=== PATIENT | female | born 1960 | race American Indian/Alaskan Native ===

== ENCOUNTER 2020-09-10 09:27 | Emergency (ER) | payer BC ==
[2020-09-10 09:56] VITALS: BP 170/88
[2020-09-10 10:21] LABS: Hematocrit 40.7 % (30.3-42.9); Hemoglobin 14.5 gm/dl (10.1-14.3); Mean Corpuscular HGB Conc 36 % (30-34); Mean Corpuscular Volume 93 fl (79-97); Platelet Count 349 K/mm3 (140-440); Red Blood Count 4.36 M/mm3 (3.65-5.03); Red Cell Distribution Width 13.1 % (13.2-15.2)
[2020-09-10 10:39] LABS: Alanine Aminotransferase 28 units/L (7-56); Albumin 4.5 g/dL (3.9-5); BUN/Creatinine Ratio 20; Blood Urea Nitrogen 18 mg/dL (7-17); Calcium 9.9 mg/dL (8.4-10.2); Hemolysis Index 3
[2020-09-10 10:43] LABS: Bilirubin,Urine NEG (Negative); Blood,Urine NEG (Negative); Color,Urine Yellow (Yellow); Mucus,Urine FEW /HPF; Protein,Urine <15 mg/dL mg/dL (Negative); Urobilinogen,Urine < 2.0 mg/dL (<2.0)
--- NOTE | 2020-09-10 11:04 | Event Note ---
ED Screening Note Date of service: 09/10/20 Time: 11:02 ED Screening Note: 59-year-old female patient with history of diabetes, alcohol use, and BMI >30 kg presents to the emergency department with complaints of postprandial right upper quadrant pain for 3 months, progressively worsening over the course of the last week. Patient was evaluated by her primary care provider, who recommended an ultrasound. However, she has not scheduled to undergo the ultrasound until next month. Patient states she used to consume an excessive amount of alcohol but has significantly cut back on her drinking. General: Awake, appropriately interactive, no acute distress. Neck: Supple. Full range of motion intact. Cardiovascular: Normal peripheral perfusion. Pulmonary: No respiratory distress. Patient is speaking normally without use of accessory muscles. Abdomen: Soft, nondistended. Right upper quadrant tenderness without guarding, rebound, or rigidity. Positive Hernandez sign. Skin: No apparent rashes or lesions. Neurological: No facial asymmetry. Speech is clear. Follows commands. Patient is alert and oriented. Musculoskeletal: Moves all four extremities spontaneously with normal range of motion. Psych: Cooperative. Appropriate mood and affect. I have greeted and performed a focused rapid initial assessment of this patient. A comprehensive ED assessment and evaluation of the patient, analysis of all test results, and completion of the medical decision-making process will be conducted by additional ED providers. This initial assessment/diagnostic orders/clinical plan/treatment(s) is/are subject to change based on patients health status, clinical progression and re-assessment. Further treatment and workup at subsequent clinical provider's discretion. Patient/guardian urged not to elope from the ED as their condition may be serious if not clinically assessed and managed.
--- NOTE | 2020-09-10 12:14 | Ultrasound Report ---
ULTRASOUND ABDOMEN, LIMITED (RIGHT UPPER QUADRANT) INDICATION: postprandial RUQ pain. COMPARISON: None available. FINDINGS: Pancreas: Visualized portion shows no significant abnormality. Liver: There is diffuse hepatic steatosis. No focal lesions are identified. Gallbladder: Minimal sludge. No stones. Bile ducts: Normal. Common Bile Duct measures 3-4 mm. Free fluid: None. Additional Findings: None. IMPRESSION: 1. Minimal gallbladder sludge, no sonographic evidence of cholecystitis. 2. Hepatic steatosis. Signer Name: Kris Almaraz MD Signed: 09/10/2020 12:09 PM Workstation Name: [id number]
--- NOTE | 2020-09-10 12:18 | Emergency Department Report ---
ED Abdominal Pain HPI - General Chief Complaint: Abdominal Pain Stated Complaint: ABDOMINAL PAIN PUI?: No Time Seen by Provider: 09/10/20 12:17 Source: patient Mode of arrival: Ambulatory Limitations: No Limitations - History of Present Illness Initial Comments: Patient is a 59-year-old -[place] female that comes to the emergency room today complaining of abdominal pain. She is currently under the care of her primary care and GI physician for right upper quadrant pain. She is to go for an ultrasound but the pain was so bad she came to the ER today. Patient denies nausea vomiting. She denies fever or chills. She denies any diarrhea or constipation. She denies being awakened at night from sleep with the pain. She denies any constipation or bloody stools. Patient cannot relate her pain to any activity or lack of activity or dietARY factor. The only thing that she can say is that she notices the pain more after eating not before during. Patient does have a significant history for alcohol use but she has decreased her drinking quite a bit per reports. MD Complaint: abdominal pain -: Gradual, week(s) Radiation: none Migration to: no migration Severity: moderate Quality: aching Improves With: nothing Worsens With: nothing Associated Symptoms: denies other symptoms - Related Data Allergies Allergy/AdvReac Type Severity Reaction Status Date / Time No Known Allergies Allergy Unverified 09/10/20 09:52 ED Review of Systems ROS: Stated complaint: ABDOMINAL PAIN Other details as noted in HPI Comment: All other systems reviewed and negative ED Past Medical Hx - Past Medical History Previous Medical History?: Yes Hx Hypertension: Yes Hx Diabetes: Yes - Surgical History Past Surgical History?: Yes Additional Surgical History: hysterectomy, c-sectionx3 - Family History Family history: no significant - Social History Smoking Status: Never Smoker Substance Use Type: Alcohol ED Physical Exam - General Limitations: No Limitations General appearance: alert, in no apparent distress - Head Head exam: Present: atraumatic, normocephalic - Eye Eye exam: Present: normal appearance - ENT ENT exam: Present: mucous membranes moist - Neck Neck exam: Present: normal inspection - Respiratory Respiratory exam: Present: normal lung sounds bilaterally. Absent: respiratory distress - Cardiovascular Cardiovascular Exam: Present: regular rate, normal rhythm. Absent: systolic murmur, diastolic murmur, rubs, gallop - GI/Abdominal GI/Abdominal exam: Present: soft, normal bowel sounds - Extremities Exam Extremities exam: Present: normal inspection - Back Exam Back exam: Present: normal inspection - Neurological Exam Neurological exam: Present: alert, oriented X3 - Psychiatric Psychiatric exam: Present: normal affect, normal mood - Skin Skin exam: Present: warm, dry, intact, normal color. Absent: rash ED Course Vital Signs 09/10/20 09/10/20 09:54 15:29 Temperature 98.8 F Pulse Rate 79 Respiratory 20 18 Rate Blood Pressure 170/88 O2 Sat by Pulse 99 Oximetry - Reevaluation(s) Reevaluation #1: 09/10/20 during ER stay patient has appeared nontoxic. She has no nausea or vomiting. She has been lying quietly without being in any distress. ED Medical Decision Making - Lab Data Result diagrams: 09/10/20 10:04 09/10/20 10:04 - Radiology Data Radiology results: report reviewed, image reviewed See report - Medical Decision Making Lab Results 09/10/20 09/10/20 09/10/20 Range/Units 10:04 10:04 10:23 WBC 7.3 (4.5-11.0) K/mm3 RBC 4.36 (3.65-5.03) M/mm3 Hgb 14.5 H (10.1-14.3) gm/dl Hct 40.7 (30.3-42.9) % MCV 93 (79-97) fl MCH 33 H (28-32) pg MCHC 36 H (30-34) % RDW 13.1 L (13.2-15.2) % Plt Count 349 (140-440) K/mm3 Sodium 138 (137-145) mmol/L Potassium 3.9 (3.6-5.0) mmol/L Chloride 100.5 (98-107) mmol/L Carbon Dioxide 26 (22-30) mmol/L Anion Gap 15 mmol/L BUN 18 H (7-17) mg/dL Creatinine 0.9 (0.6-1.2) mg/dL Estimated GFR > 60 ml/min BUN/Creatinine Ratio 20 % Glucose 125 H (65-100) mg/dL Calcium 9.9 (8.4-10.2) mg/dL Total Bilirubin 0.40 (0.1-1.2) mg/dL AST 24 (5-40) units/L ALT 28 (7-56) units/L Alkaline Phosphatase 76 (35-129) units/L Total Protein 7.8 (6.3-8.2) g/dL Albumin 4.5 (3.9-5) g/dL Albumin/Globulin Ratio 1.4 % Lipase 34 (13-60) units/L Urine Color Yellow (Yellow) Urine Turbidity Clear (Clear) Urine pH 5.0 (5.0-7.0) Ur Specific Stoddard 1.031 H (1.003-1.030) Urine Protein <15 mg/dl (Negative) mg/dL Urine Glucose (UA) >=500 (Negative) mg/dL Urine Ketones 20 (Negative) mg/dL Urine Blood Neg (Negative) Urine Nitrite Neg (Negative) Urine Bilirubin Neg (Negative) Urine Urobilinogen < 2.0 (<2.0) mg/dL Ur Leukocyte Esterase Neg (Negative) Urine WBC (Auto) 1.0 (0.0-6.0) /HPF Urine RBC (Auto) 1.0 (0.0-6.0) /HPF U Epithel Cells (Auto) 1.0 (0-13.0) /HPF Urine Mucus Few /HPF Vital Signs 09/10/20 09:54 Temperature 98.8 F Pulse Rate 79 Respiratory 20 Rate Blood Pressure 170/88 O2 Sat by Pulse 99 Oximetry Labs noted. Lipase is normal. UA noted. No UTI. Glucosuria noted. Ultrasound noted with no stone obstruction or dilation of common bile duct. CT noteD with no acute process. No free air noted Patient medicated for pain with Toradol x1. On discharge patient is ambulatory, [id number]. She is taking p.o. I have reviewed all of labs and studies with her. Patient verbalizes an understanding that she needs to continue to follow-up with her primary care and GI doctor. She may need a colonoscopy and/or EGD to determine the etiology of her abdominal pain. Although her pain sounds like it is gallbladder in nature her ultrasound and CT have been negative today. Patient has been advised to stop drinking alcohol altogether. Patient discharged home with primary care and GI follow-up. She has been instructed to take Pepcid daily. She has been instructed to avoid alcohol. I have also encouraged the patient to have a bland diet in the event that she should have an ulcer this may help. Patient verbalizes understanding of discharge plan of care - Differential Diagnosis RO CHOLEYCYSTIS; UTI; DIVERTIULAR DISEASE; ULCER, pancreatitis Critical care attestation.: If time is entered above; I have spent that time in minutes in the direct care of this critically ill patient, excluding procedure time. ED Disposition Clinical Impression: Abdominal pain Disposition: DC-01 TO HOME OR SELFCARE Is pt being admited?: No Does the pt Need Aspirin: No Condition: Stable Instructions: Abdominal Pain (ED) Additional Instructions: ALL SCANS NORMAL TODAY FOLLOW UP WITH PCP AND GI MD YOU MAY NEED COLONOSCOPY DIET AND ACTIVITY TOLERATED Referrals: PRIMARY CARE, [Primary Care Provider] - 3-5 Days GODWIN HOWARD MD [Staff Physician] - 3-5 Days JAMES KAPADIA MD [Staff Physician] - 3-5 Days Forms: Work/School Release Form(ED) Time of Disposition: 13:11
--- NOTE | 2020-09-10 15:05 | Cat Scan Report ---
CT ABDOMEN AND PELVIS WITH CONTRAST INDICATION / CLINICAL INFORMATION: Right upper quadrant pain TECHNIQUE: Axial CT images were obtained through the abdomen and pelvis after IV contrast. All CT sc ans at this location are performed using CT dose reduction for ALARA by means of automated exposure c ontrol. COMPARISON: Ultrasound from 09/10/2020 FINDINGS: LOWER CHEST: No significant abnormality LIVER: Hepatic steatosis. GALLBLADDER/BILIARY TREE: Gallbladder is unremarkable by CT. No biliary dilatation. PANCREAS: No significant abnormality SPLEEN: No significant abnormality ADRENALS: Indeterminate 2 cm left adrenal nodule, may reflect an adenoma. Right adrenal gland is norm al. KIDNEYS / URETER: No significant abnormality URINARY BLADDER: No significant abnormality REPRODUCTIVE ORGANS: No significant abnormality STOMACH / SMALL BOWEL: Stomach and small bowel are normal in caliber. No evidence of bowel inflammati on. COLON: The colon is unremarkable. The appendix is normal in caliber. LYMPH NODES: No significant adenopathy. VASCULATURE: No significant abnormality. OTHER: No free air, free fluid, or focal fluid collection is identified. Periumbilical hernia contain s noninflamed fat. SKELETAL SYSTEM: No acute osseous findings. IMPRESSION: 1. No acute abnormality of the abdomen or pelvis. 2. Indeterminate 2 cm left adrenal nodule, which may reflect an adenoma. Recommend nonemergent outpat ient CT with adrenal mass protocol. 3. Hepatic steatosis. Signer Name: Boby Romo MD Signed: 09/10/2020 3:01 PM Workstation Name: [id number]
[2020-09-10] MEDS ORDERED: KETOROLAC 30 MG/1 ML INJ IV ONE (15:21)
== END 2020-09-10 15:45 | disposition home or self-care (01) ==
LOC: ED 09:27
DX: R10.9 Unspecified abdominal pain (principal); I10 Essential (primary) hypertension; E11.9 Type 2 diabetes mellitus without complications; Z90.710 Acquired absence of both cervix and uterus; Z98.890 Other specified postprocedural states
CPT/HCPCS: 36415; 74177; 76705; 80053; 81001; 83690; 85027; 96374; 99284; J1885; Q9967